=== PATIENT | female | born 1955 | race Caucasian/White ===

== ENCOUNTER 2022-04-14 09:36 | Emergency (ER) | payer BC ==
[~2022-04-14] VITALS: Ht 167.6 cm; Wt 64.4 kg
[2022-04-14] MEDS ORDERED: HYDROCHLORIC A500 M1 (10:08)
[2022-04-14] MEDS ORDERED: KETO10TA2 PO (11:28)
[2022-04-14] MEDS ORDERED: NORFLEX100MG PO (11:28)
== END 2022-04-14 12:21 | disposition home or self-care (01) ==
LOC: ER 09:36
DX: M25.561 Pain in right knee (principal)